=== PATIENT | male | born 1970 | race Caucasian/White ===

== ENCOUNTER 2018-08-30 08:15 | Emergency (ER) | payer MEDICARE, SELFPAY ==
[~2018-08-30] VITALS: Ht 182.9 cm; Wt 97.0 kg
[2018-08-30 09:20] VITALS: BP 138/104
[2018-08-30 09:26] LABS: RAPID INFLUENZA A Negative (Negative); RAPID INFLUENZA B Negative (Negative)
== END 2018-08-30 10:11 | disposition home or self-care (01) ==
LOC: ED 09:30
DX: J20.8 Acute bronchitis due to other specified organisms (principal); I10 Essential (primary) hypertension
CPT/HCPCS: 71046; 87400; 99284